=== PATIENT | female | born 1990 | race African-American/Black ===

== ENCOUNTER 2018-06-11 09:25 | Inpatient (IN) ==
[2018-06-11] MEDS ORDERED: ONDANSETRON 4 MG/2 ML VIAL IV PRN ×2 (09:43→13:36)
[2018-06-11] MEDS ORDERED: MEPERIDINE 50 MG/1 ML VIAL IV PRN (09:43)
[2018-06-11] MEDS ORDERED: BUTORPHANOL 2 MG/ML VIAL IV PRN (09:43)
[2018-06-11] MEDS ORDERED: ONDANSETRON 4 MG/2 ML VIAL IV ONE (09:48)
[2018-06-11] MEDS ORDERED: hydrOXYzine HCL 25 MG/1 ML VIAL IM PRN (09:48)
[2018-06-11] MEDS ORDERED: CITRIC ACID/SODIUM CITRATE 30 ML UDCUP PO ONE (09:48)
[2018-06-11] MEDS ORDERED: diphenhydrAMINE 50 MG/1 ML VIAL IV PRN ×2 (09:48)
[2018-06-11] MEDS ORDERED: ePHEDrine 50 MG/ML AMP IV PRN (09:48)
[2018-06-11] MEDS ORDERED: PROMETHAZINE 25 MG/1 ML VIAL IM ONE (09:48)
[2018-06-11] MEDS ORDERED: FAMOTIDINE 20 MG/2 ML VIAL IV ONE (09:48)
[2018-06-11] MEDS ORDERED: LACTATED RINGERS 1,000 ML IV ONE (09:48)
[2018-06-11] MEDS ORDERED: NALOXONE 0.4 MG/ML VIAL IV PRN (09:48)
[2018-06-11] MEDS ORDERED: LACTATED RINGERS 1,000 ML IV SCH (10:00)
[2018-06-11] MEDS ORDERED: OXYTOCIN/LR 20 UNIT/1,000 ML BAG IV SCH (10:00)
[2018-06-11] MEDS ORDERED: fentaNYL 2 MCG/ROPIV 0.2% EPID 100 ML EPIDURAL SCH (10:00)
[2018-06-11 10:03] LABS: Basophils % 0.5 % (0.0-0.8); Hematocrit 33.7 VOL% (35.7-47.0); Hemoglobin 10.2 GM/DL (12.0-16.0); Immature Granulocytes % 0.5 %; Immature Granulocytes Absolute 0.04 #; Lymphocytes # 1.5 10*3/uL (1.4-4.0); Lymphocytes % 17.5 % (21.3-54.2); Mean Corpuscular HGB Conc 30.3 GM/DL (32-36); Mean Corpuscular Hemoglobin 28 PG (27-34); Mean Corpuscular Volume 92.1 FL (87-102); Mean Platelet Volume 10.9 FL (9.6-12.0); Monocytes # 0.5 10*3/uL (0.11-0.8); Monocytes % 5.9 % (1.7-12.7); Neutrophils # 6.6 10*3/uL (1.4-7.4); Neutrophils % 75.6 % (38.7-73.9); Platelet Count 246 T/CUMM (130-400); Red Blood Count 3.66 MC/CUMM (3.8-5.5); Red Cell Distribution Width 13.8 % (9.3-17.3); White Blood Count 8.7 T/CUMM (4-12)
[2018-06-11 10:23] LABS: Alanine Aminotransferase 13 U/L (13-56); Albumin 2.5 G/DL (3.4-5.0); Alkaline Phosphatase 136 U/L (45-117); Aspartate Amino Transferase 15 U/L (0-37); Bilirubin,Total < 0.39 MG/DL (0.2-1.0); Blood Urea Nitrogen 7 MG/DL (7-18); Glucose 74 MG/DL (74-106); Osmolality,Calculated 266.1 MOS/KG (273-304); Potassium 3.6 MMOL/L (3.5-5.1); Sodium 135 MMOL/L (136-145); Total Protein 6.5 G/DL (6.4-8.3)
[2018-06-11] MEDS: AMPICILLIN INJ 2,000 MG in SODIUM CHLORIDE 0.9% 100 ML IV SCH ×2 (10:24→18:56)
[2018-06-11] MEDS ORDERED: miSOPROStol 200 MCG TABLET ONE (11:20)
[2018-06-11] MEDS ORDERED: LIDOCAINE 1% 50 ML VIAL ONE (11:20)
[2018-06-11 11:30] LABS: Apearance,Urine CLEAR (Clear); Bilirubin,Urine Negative (Negative); Blood, Urine Negative (Negative); Glucose,Urine (UA) Negative (Negative); Ketones,Urine 5 mg/dL (Negative); Mucus,Urine Occasional /LPF (Occasional); Nitrite,Urine Negative (Negative); Protein,Urine Negative; RBC,Urine <1 /HPF (0-4); Urine Color Straw (Yellow); Urine Specific Gravity 1.009 (1.001-1.035); Urine Urobilinogen < 2.0 EU/DL (0.2-1.0); WBC,Urine <1 /HPF (0-6)
[2018-06-11] MEDS ORDERED: HYDROCORTISONE 2.5% RECTAL CREAM 30 GM TUBE TOP PRN (13:36)
[2018-06-11] MEDS ORDERED: BENZOCAINE 20%/MENTHOL 0.5% SPRAY 56 GM CAN TOP PRN (13:36)
[2018-06-11] MEDS ORDERED: LANOLIN 50% CREAM 0.3 OZ TUBE TOP PRN (13:36)
[2018-06-11] MEDS ORDERED: BISACODYL 10 MG SUPP RECTAL PRN (13:36)
[2018-06-11] MEDS ORDERED: WITCH HAZEL PADS 100/JAR TOP PRN (13:36)
[2018-06-11] MEDS ORDERED: ACETAMINOPHEN 325 MG TABLET PO PRN (13:36)
[2018-06-11] MEDS ORDERED: oxyCODONE/ACETAMINOPHEN 5-325 MG TABLET PO PRN ×2 (13:36)
[2018-06-11] MEDS ORDERED: OXYTOCIN/LR 20 UNIT/1,000 ML BAG IV ONE (13:36)
[2018-06-11] MEDS ORDERED: DIPH/TET/ACEL PERT BOOSTER VACCINE 0.5 ML VIAL IM ONE (13:36)
[2018-06-11] MEDS ORDERED: MEASLES/MUMPS/RUBELLA VACCINE 0.5 ML VIAL SUBCUT ONE (13:36)
[2018-06-11] MEDS ORDERED: RHO(D) IMMUNE GLOBULIN 300 MCG SYRINGE IM ONE (13:36)
[2018-06-11] MEDS: IBUPROFEN 800 MG TABLET PO PRN (17:08)
[2018-06-11] MEDS: DOCUSATE SODIUM 100 MG CAPSULE PO SCH (21:12)
[2018-06-12 05:03] LABS: Basophils # 0.1 10*3/uL (0.0-0.2); Basophils % 0.6 % (0.0-0.8); Hematocrit 27.9 VOL% (35.7-47.0); Hemoglobin 8.5 GM/DL (12.0-16.0); Immature Granulocytes % 0.5 %; Immature Granulocytes Absolute 0.06 #; Lymphocytes # 1.8 10*3/uL (1.4-4.0); Lymphocytes % 16.5 % (21.3-54.2); Mean Corpuscular HGB Conc 30.5 GM/DL (32-36); Mean Corpuscular Hemoglobin 28 PG (27-34); Mean Corpuscular Volume 91.5 FL (87-102); Mean Platelet Volume 11.2 FL (9.6-12.0); Monocytes # 0.7 10*3/uL (0.11-0.8); Neutrophils # 8.4 10*3/uL (1.4-7.4); Neutrophils % 76.4 % (38.7-73.9); Platelet Count 236 T/CUMM (130-400); Red Blood Count 3.05 MC/CUMM (3.8-5.5); Red Cell Distribution Width 13.8 % (9.3-17.3)
[2018-06-12] MEDS: IBUPROFEN 800 MG TABLET PO PRN (08:09)
[2018-06-12] MEDS: DOCUSATE SODIUM 100 MG CAPSULE PO SCH ×2 (09:01→21:04)
[2018-06-13] MEDS: DOCUSATE SODIUM 100 MG CAPSULE PO SCH (08:51)
[2018-06-13 09:05] VITALS: BP 107/70
[2018-06-13] MEDS ORDERED: INFLUENZA VIRUS VACCINE 0.5 ML SYRINGE IM ONE (09:59)
== END 2018-06-13 10:30 | disposition home or self-care (01) | DRG 560 ==
LOC: N.LDOUT 09:25 → N.LD 09:26 → N.OB 06-12 08:44
PROVIDERS: ADMIT Specialist; ATTEND Specialist